=== PATIENT | male | born 1935 | race Caucasian/White ===

== ENCOUNTER 2018-02-27 09:18 | Day surgery (SDC) | payer MEDICARE, BC ==
[~2018-02-27 09:18] MED LIST: Lactated Ringers 1,000 ML IV SCH; Sodium Chloride 0.9% 10 ML Syringe FLUSH PRN
--- NOTE | 2018-02-27 11:20 | PREOP ---
ADMISSION DATE: 02/27/2018 CHIEF COMPLAINT: Epigastric pain. HISTORY OF PRESENT ILLNESS: This is an 82-year-old white male who has had some issues with gastroduodenitis. This was confirmed by biopsy. Recently, he has had a flare up of his epigastric discomfort and has not responded very well to the changes in medication. He presents now for an upper endoscopy. PAST MEDICAL HISTORY: Significant for hyperlipidemia, arthritis, gout, gastroduodenitis, gastroesophageal reflux disease, and renal calculi. PAST SURGICAL HISTORY: Significant for cataract surgery, knee surgery, left trapeziectomy, tonsils and adenoidectomy, bilateral knees, joint replacement in the thumbs, esophagogastroduodenoscopy, and skin biopsy. MEDICATIONS: Include: 1. Zantac 150 mg at bedtime. 2. Carafate 1 g four times a day before meals and at bedtime. 3. Aspirin 81 mg daily. 4. Protonix 40 mg daily. 5. Voltaren gel. 6. Zyloprim 100 mg daily. 7. Lipitor 80 mg daily. 8. Tylenol 1300 mg 2 times a day as needed for pain. ALLERGIES: Has no known drug allergies. SOCIAL HISTORY: The patient is . He is a former smoker and does not drink. REVIEW OF SYSTEMS: Essentially noncontributory except for the epigastric abdominal pain. He denies any breathing or cardiac issues. PHYSICAL EXAMINATION: GENERAL: This is a well-developed, well-nourished male, appearing in no acute distress. HEENT: Grossly within normal limits. LUNGS: Clear to auscultation. HEART: Had a regular rate and rhythm. ABDOMEN: Soft, nontender. ASSESSMENT: Persistent epigastric abdominal pain. PLAN: Esophagogastroduodenoscopy. Procedure and risks explained to the patient to include bleeding, infection, perforation. The patient expresses understanding and he asked us to proceed. /[id number] /MODL
[2018-02-27] MEDS ORDERED: Propofol 200 MG/20 ML SDV IV ONE (11:30)
[2018-02-27] MEDS ORDERED: Midazolam 1 MG/ML 2 ML SDV IV ONE (11:30)
--- NOTE | 2018-02-27 11:40 | PCM.OPNOTE ---
- General Post-Op/Procedure Note Date of Surgery/Procedure: 02/27/18 Operative Procedure(s): egd with bx Findings: gastritis Pre Op Diagnosis: hx of gerd gastroduodenitis Post-Op Diagnosis: gastritis Anesthesia Technique: MONIQUE Primary Surgeon: Sadi Barnard Anesthesia Provider: Luis Sherwood Pathology: stomach Complications: None Condition: Good Free Text/Narrative:: see dictation
--- NOTE | 2018-02-27 12:12 | OR ---
DATE OF OPERATION: 02/27/2018 SURGEON: Sadi Barnard MD PROCEDURES PERFORMED: EGD with cold forceps biopsy. PREOPERATIVE DIAGNOSES: Personal history of gastroduodenitis and persistent epigastric abdominal pain. POSTOPERATIVE DIAGNOSIS: Gastritis. INDICATIONS FOR PROCEDURE: This 82-year-old white male with epigastric abdominal pain, known history of gastroduodenitis proven on biopsy in the past. DESCRIPTION OF PROCEDURE: After an excellent IV sedation was administered, the bite block was inserted. The flexible endoscope was passed without difficulty down the patient's esophagus and into the stomach. The stomach was insufflated. Scope passed through the pylorus, to second portion of the duodenum, and slowly withdrawn. The following findings were noted. Duodenum was unremarkable. Stomach demonstrated some gastritis as well as some atrophy. Biopsies were taken. Esophagus was essentially unremarkable. Stomach was deflated as the scope was removed. The patient tolerated the procedure well and was taken to Recovery in a good condition. /[id number] CHERI/QUE
[2018-02-27 13:24] VITALS: BP 123/79
== END 2018-02-27 12:53 | disposition home or self-care (01) ==
LOC: FB.SDS 09:18
PROVIDERS: ATTEND Surgery
DX: K29.50 Unspecified chronic gastritis without bleeding (principal); E78.5 Hyperlipidemia, unspecified; M19.90 Unspecified osteoarthritis, unspecified site; M10.9 Gout, unspecified; K29.80 Duodenitis without bleeding; K21.9 Gastro-esophageal reflux disease without esophagitis; N20.0 Calculus of kidney; Z79.82 Long term (current) use of aspirin; Z79.899 Other long term (current) drug therapy; Z87.891 Personal history of nicotine dependence
CPT/HCPCS: 00731-QZ; 88305; 88342; J2250; J2704; J7120

== ENCOUNTER 2019-01-31 17:48 | Emergency (ER) | payer MEDICARE ==
[2019-01-31] MEDS ORDERED: Ketorolac 30 MG/ML SDV IVPUSH STA (18:29)
[2019-01-31] MEDS ORDERED: Tamsulosin 0.4 MG Cap.ER PO ONE (18:34)
--- NOTE | 2019-01-31 18:35 | EDM.PDOC ---
<Joon Faith - Last Filed: 01/31/19 19:53> ED HPI GENERAL MEDICAL PROBLEM - General Stated Complaint: PENIS PAIN, UNABLE TO URINATE Time Seen by Provider: 01/31/19 17:48 - Related Data Allergies Allergy/AdvReac Type Severity Reaction Status Date / Time No Known Allergies Allergy Verified 01/31/19 22:18 Home Meds: Home Meds Allopurinol 100 mg PO DAILY 01/04/16 [History] atorvaSTATin [Lipitor] 80 mg PO DAILY 01/04/16 [History] Acetaminophen [Tylenol Arthritis] 1,300 mg PO BID PRN 02/26/18 [History] Aspirin [Adult Low Dose Aspirin EC] 81 mg PO DAILY 02/26/18 [History] Diclofenac Sodium [Voltaren] 4 gm TP BID 02/26/18 [History] Multivitamin with Minerals [Multiple Vitamin] 1 tab PO DAILY 02/27/18 [History] Sucralfate [Carafate] 1 gm PO ACBREAKFASTANDBED #120 tablet 02/27/18 [Rx] Apixaban [Eliquis] 5 mg PO BID #60 tablet 11/02/18 [Rx] Diltiazem HCl [Diltiazem 24Hr Cd] 180 mg PO BID #60 cap.er.24h 11/02/18 [Rx] Furosemide [Lasix] 20 mg PO DAILY #60 tablet 11/02/18 [Rx] Potassium Chloride [Klor-Con 10] 10 meq PO DAILY #60 tablet.er 11/02/18 [Rx] Pantoprazole Sodium [Protonix] 40 mg PO DAILY 01/31/19 [History] Tamsulosin HCl 0.4 mg PO DAILY 01/31/19 [History] Course - Vital Signs Last Recorded V/S: Last Vital Signs Temp 36.6 C 01/31/19 19:00 Pulse 63 01/31/19 20:00 Resp 16 01/31/19 20:00 BP 112/63 01/31/19 20:00 Pulse Ox 95 01/31/19 20:00 - Orders/Labs/Meds Labs: Laboratory Tests 01/31/19 01/31/19 01/31/19 Range/Units 18:45 18:45 19:26 WBC 5.1 (4.5-12.0) X10-3/uL RBC 3.73 L (4.30-5.75) x10(6)uL Hgb 11.9 L (13.5-17.8) g/dL Hct 35.7 (30.0-51.3) % MCV 95.9 (80-96) fL MCH 32.0 (27.7-33.6) pg MCHC 33.4 (32.2-35.4) g/dL RDW 14.1 (11.5-15.5) % Plt Count 202 (125-369) X10(3)uL MPV 7.1 L (7.4-10.4) fL Neut % (Auto) 63.5 (46-82) % Lymph % (Auto) 19.7 (13-37) % Tift % (Auto) 10.4 (4-12) % Eos % (Auto) 6 H (1.0-5.0) % Baso % (Auto) 1 (0-2) % Neut # (Auto) 3.3 (1.6-8.3) # Lymph # (Auto) 1.0 (0.6-5.0) # Tift # (Auto) 0.5 (0.0-1.3) # Eos # (Auto) 0.3 (0.0-0.8) # Baso # (Auto) 0.0 (0.0-0.2) # Sodium 139 (135-145) mmol/L Potassium 3.9 (3.5-5.3) mmol/L Chloride 104 (100-110) mmol/L Carbon Dioxide 26 (21-32) mmol/L BUN 15 (7-18) mg/dL Creatinine 1.0 (0.70-1.30) mg/dL Est Cr Clr Drug Dosing TNP Estimated GFR (MDRD) > 60 (>60) BUN/Creatinine Ratio 15.0 (9-20) Glucose 105 (80-116) mg/dL Calcium 8.2 L (8.6-10.2) mg/dL Urine Color [place] (YELLOW) Urine Appearance Clear (CLEAR) Urine pH 5.0 (5.0-6.5) Ur Specific [place] 1.015 (1.010-1.025) Urine Protein 30 H (NEGATIVE) mg/dL Urine Glucose (UA) Normal (NORMAL) mg/dL Urine Ketones Negative (NEGATIVE) mg/dL Urine Occult Blood Moderate H (NEGATIVE) Urine Nitrite Positive H (NEGATIVE) Urine Bilirubin Small H (NEGATIVE) Urine Urobilinogen 4 H (NEGATIVE) mg/dL Ur Leukocyte Esterase Negative (NEGATIVE) Urine RBC 10-20 H (0-5) Urine WBC 0-5 (0-5) Ur Squamous Epith Cells Occasional (NS,R,O) Amorphous Sediment Few Urine Bacteria Rare H (NS) Meds: Medications Discontinued Medications Generic Name Dose Route Start Last Admin Trade Name Kristie PRN Reason Stop Dose Admin Ketorolac Tromethamine 15 mg 01/31/19 18:29 01/31/19 18:36 Toradol IVPUSH 01/31/19 18:30 15 mg ONETIME STA Administration Tamsulosin HCl 0.4 mg 01/31/19 18:34 01/31/19 18:39 Flomax PO 01/31/19 18:35 0.4 mg ONETIME ONE Administration Departure - Departure Disposition: Home, Self-Care 01 Clinical Impression: Prostate CA - Discharge Information Referrals: Nixon Putnam MD [Primary Care Provider] - Forms: ED Department Discharge Care Plan Goals: Continue what you were doing Follow up with urology as planned <Asad Ureña - Last Filed: 02/03/19 01:04> ED HPI GENERAL MEDICAL PROBLEM - General Source of Information: Reports: Patient, Family History Limitations: Reports: No Limitations - History of Present Illness INITIAL COMMENTS - FREE TEXT/NARRATIVE: 83 y.o.w.m with a H/O keystones and prostate CA, came to the ed due to bilateral flank pain and suprapubic distension, no able to void. No trauma, no urinary retention in the past, No N/V/D no dizziness. No C/P no SOB no other acute medical issues. BP 143/91 RR 20 Pulse ox 90% on RA Pulse 110 Temp 36.6 Onset Date: 01/31/19 Onset Time: 10:00 Duration: Hour(s):, Getting Worse Location: Reports: Abdomen, Pelvis Quality: Reports: Burning, Dull Severity: Moderate Improves with: Reports: Medication, Other (voiding) Context: Reports: Other (H/O Kidney stones) penis Pain Score (Numeric/FACES): 10 Past Medical History HEENT History: Reports: Cataract Cardiovascular History: Reports: None, High Cholesterol, Other (See Below) Other Cardiovascular History: TACHYCARDIA Respiratory History: Reports: None Gastrointestinal History: Reports: GERD Genitourinary History: Reports: BPH, Renal Calculus 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 Musculoskeletal History: Reports: Arthritis, Fracture, Gout Neurological History: Reports: None Psychiatric History: Reports: Anxiety Endocrine/Metabolic History: Reports: None Hematologic History: Reports: None Immunologic History: Reports: None Oncologic (Cancer) History: Reports: None Other Oncologic History: recent diagnsis- appt on Wednesday November 08, 2017 Dermatologic History: Reports: None - Past Surgical History Head Surgeries/Procedures: Reports: None HEENT Surgical History: Reports: Adenoidectomy, Cataract Surgery, Tonsillectomy , Other (See Below) Other HEENT Surgeries/Procedures: YAG CAPSULOTOMY-OD GI Surgical History: Reports: EGD Musculoskeletal Surgical History: Reports: Joint Replacement, Knee Replacement Dermatological Surgical History: Reports: Skin Biopsy Social & Family History - Family History Family Medical History: Noncontributory Cardiac: Reports: Arrhythmia, Bypass, CAD, Heart Failure, Heart Valve Replacement, High Cholesterol, Hypertension, [place], Stent - Caffeine Use Caffeine Use: Reports: Coffee ED ROS GENERAL - Review of Systems Review Of Systems: See Below Constitutional: Reports: No Symptoms HEENT: Reports: No Symptoms Respiratory: Reports: No Symptoms Cardiovascular: Reports: No Symptoms Endocrine: Reports: No Symptoms GI/Abdominal: Reports: Abdominal Pain : Reports: Flank Pain, Frequency, Hematuria, Urinary Retention Musculoskeletal: Reports: No Symptoms Skin: Reports: No Symptoms Neurological: Reports: No Symptoms Psychiatric: Reports: No Symptoms Hematologic/Lymphatic: Reports: No Symptoms Immunologic: Reports: No Symptoms ED EXAM, RENAL/ - Physical Exam Exam: See Below Exam Limited By: No Limitations General Appearance: Alert, WD/WN, Moderate Distress Eye Exam: Bilateral Eye: Normal Inspection Ears: Normal External Exam, Normal Canal Nose: Normal Inspection, Normal Mucosa Throat/Mouth: Normal Inspection, Normal Lips, Normal Voice, No Airway Compromise Head: Atraumatic, Normocephalic Neck: Normal Inspection, Supple, Non-Tender, Full Range of Motion Respiratory/Chest: No Respiratory Distress, Lungs Clear, Normal Breath Sounds, Chest Non-Tender Cardiovascular: Normal Peripheral Pulses, Regular Rate, Rhythm, No Edema, No Murmur, No Rub GI/Abdominal: Tender (distended, ) (Male) Exam: Suprapubic Fullness Rectal (Males) Exam: Deferred Back Exam: Normal Inspection Extremities: Normal Inspection, Normal Range of Motion, Non-Tender, No Pedal Edema, Normal Capillary Refill Neurological: Alert, Oriented, CN II-XII Intact, Normal Gait Psychiatric: Normal Affect, Normal Mood Skin Exam: Warm, Dry, Intact, Normal Color, No Rash Lymphatic: No Adenopathy Course - Vital Signs Text/Narrative:: 83 y.o.w.m with a H/O keystones and prostate CA, came to the ed due to bilateral flank pain and suprapubic distension, no able to void. No trauma, no urinary retention in the past, No N/V/D no dizziness. No C/P no SOB no other acute medical issues. BP 143/91 RR 20 Pulse ox 90% on RA Pulse 110 Temp 36.6 PE: WNWD W M with Abd pain unable to void Bladder scanner: > 370 cc Imaging: CT abd/pelvis: NAD Labs: Pending Impression: Flank pain, suprapubic distension Tx: Toradol, Flomax Sahu cath Signed out to Dr Soto at 7 am due to shift changes. Last Recorded V/S: Last Vital Signs Temp 36.6 C 01/31/19 19:00 Pulse 63 01/31/19 20:00 Resp 16 01/31/19 20:00 BP 112/63 01/31/19 20:00 Pulse Ox 95 01/31/19 20:00 - Orders/Labs/Meds Labs: Laboratory Tests 01/31/19 01/31/19 01/31/19 Range/Units 18:45 18:45 19:26 WBC 5.1 (4.5-12.0) X10-3/uL RBC 3.73 L (4.30-5.75) x10(6)uL Hgb 11.9 L (13.5-17.8) g/dL Hct 35.7 (30.0-51.3) % MCV 95.9 (80-96) fL MCH 32.0 (27.7-33.6) pg MCHC 33.4 (32.2-35.4) g/dL RDW 14.1 (11.5-15.5) % Plt Count 202 (125-369) X10(3)uL MPV 7.1 L (7.4-10.4) fL Neut % (Auto) 63.5 (46-82) % Lymph % (Auto) 19.7 (13-37) % Tift % (Auto) 10.4 (4-12) % Eos % (Auto) 6 H (1.0-5.0) % Baso % (Auto) 1 (0-2) % Neut # (Auto) 3.3 (1.6-8.3) # Lymph # (Auto) 1.0 (0.6-5.0) # Tift # (Auto) 0.5 (0.0-1.3) # Eos # (Auto) 0.3 (0.0-0.8) # Baso # (Auto) 0.0 (0.0-0.2) # Sodium 139 (135-145) mmol/L Potassium 3.9 (3.5-5.3) mmol/L Chloride 104 (100-110) mmol/L Carbon Dioxide 26 (21-32) mmol/L BUN 15 (7-18) mg/dL Creatinine 1.0 (0.70-1.30) mg/dL Est Cr Clr Drug Dosing TNP Estimated GFR (MDRD) > 60 (>60) BUN/Creatinine Ratio 15.0 (9-20) Glucose 105 (80-116) mg/dL Calcium 8.2 L (8.6-10.2) mg/dL Urine Color [place] (YELLOW) Urine Appearance Clear (CLEAR) Urine pH 5.0 (5.0-6.5) Ur Specific [place] 1.015 (1.010-1.025) Urine Protein 30 H (NEGATIVE) mg/dL Urine Glucose (UA) Normal (NORMAL) mg/dL Urine Ketones Negative (NEGATIVE) mg/dL Urine Occult Blood Moderate H (NEGATIVE) Urine Nitrite Positive H (NEGATIVE) Urine Bilirubin Small H (NEGATIVE) Urine Urobilinogen 4 H (NEGATIVE) mg/dL Ur Leukocyte Esterase Negative (NEGATIVE) Urine RBC 10-20 H (0-5) Urine WBC 0-5 (0-5) Ur Squamous Epith Cells Occasional (NS,R,O) Amorphous Sediment Few Urine Bacteria Rare H (NS) Meds: Medications Discontinued Medications Generic Name Dose Route Start Last Admin Trade Name Freq PRN Reason Stop Dose Admin Ketorolac Tromethamine 15 mg 01/31/19 18:29 01/31/19 18:36 Toradol IVPUSH 01/31/19 18:30 15 mg ONETIME STA Administration Tamsulosin HCl 0.4 mg 01/31/19 18:34 01/31/19 18:39 Flomax PO 01/31/19 18:35 0.4 mg ONETIME ONE Administration Departure - Departure Time of Disposition: 19:00 Condition: Fair
[2019-01-31 21:38] VITALS: BP 112/63
--- NOTE | 2019-02-03 10:40 | CT ---
INDICATION: Flank pain - penis pain. CT ABDOMEN AND PELVIS WITHOUT CONTRAST: Spiral 2.5 mm axial sections were obtained through the abdomen and pelvis without contrast, with sagittal and coronal reconstructions, 01/31/19, and compared with 11/28/18 [place] images. Total exam DLP = 888.67 mGy-cm. Minimal fibrotic appearing changes are noted at the lung bases bilaterally. The heart showed evidence of valvular disease and was slightly prominent in size. A somewhat lobulated low density mass is noted in the posteromedial right lobe of the liver, measuring approximately 26.8 mm, likely representing a benign structure. The gallbladder was contracted. The adrenal glands show evidence of a small probable benign adrenal lesion, low density on the left, likely an adenoma. As on the previous study, multiple calculi are noted in both kidneys, more numerous on the right than left. However, no obstructive uropathy was identified. No ureterectasis was seen. No definite renal mass is seen. Mild renal cortical scarring is suggested. No retroperitoneal mass was seen. Urinary bladder showed no evidence of calculi. The prostate did not appear to be enlarged. No urethral calculus was seen. Degenerative changes and disk disease are noted in the thoracolumbosacral spine. Calcifications are noted in the abdominal aorta, renal arteries, iliac and femoral arteries. A sigmoid scoliosis is noted with dextroconvex scoliosis at the thoracolumbar spine, dextroconcave scoliosis at the mid lumbar spine. The spleen appeared normal with a probable splenule inferiorly and anteriorly. The pancreas was felt to be normal. Sigmoid diverticulosis is noted without definite evidence of diverticulitis. No free air or bowel obstruction was suggested. No additional mass lesions, organomegaly, or free fluid collections were identified in the abdomen or pelvis. IMPRESSION: 1. 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 Urinary bladder may be slightly distended. 2. ASD. 3. Degenerative changes and disk disease thoracolumbosacral spine. 4. Probable benign cystic structure right lobe of the liver. 5. Probable valvular disease of the heart with mild pericardial thickening inferiorly of questionable significance. 6. Diverticulosis of the sigmoid colon without definite evidence of diverticulitis. Report was called to Dr. Ureña at approximately 1939 hours on 01/31/19. [facility]
== END 2019-01-31 20:07 | disposition home or self-care (01) ==
LOC: FB.ED 17:48
DX: C61 Malignant neoplasm of prostate (principal); Z79.899 Other long term (current) drug therapy; Z79.82 Long term (current) use of aspirin
CPT/HCPCS: 36415; 74176; 80048; 81001; 85025; 96374; 99284; A9270; J1885

== ENCOUNTER 2019-02-01 08:54 | Emergency (ER) | payer MEDICARE ==
--- NOTE | 2019-02-01 09:04 | EDM.PDOC ---
ED HPI GENERAL MEDICAL PROBLEM - General Stated Complaint: NEED CATHATER PLACED Time Seen by Provider: 02/01/19 08:54 Source of Information: Reports: Patient, Family History Limitations: Reports: No Limitations - History of Present Illness INITIAL COMMENTS - FREE TEXT/NARRATIVE: 83 y.o.w.m with a a H/O Prostate CA, came to the Ed today because he could not urinate. Pt was seen in this ed for same yesterday. Yesterday, the pt had urinary retention, he voided 400 CC through the Sahu cath, he felt fine, Sahu was removed, Pt was d/c'd to home. Now, the patient has again suprapubic fullness, he called his oncologist, who recommended a permanent Sahu catheter until her sees a urologist. No N/V/D no dizziness no CP or SOB. No other acute med issue. CT abd/pelvis was neg yesterday. BP 121/82 RR 18 Pulse ox 96% on RA pulse 61 Temp 36.6 Onset Date: 02/01/19 Onset Time: 03:00 Duration: Hour(s):, Getting Worse Location: Reports: Pelvis Quality: Reports: Dull Severity: Moderate Improves with: Reports: Rest Worsens with: Reports: Movement Context: Reports: Other (Prostate CA) Associated Symptoms: Reports: No Other Symptoms Treatments [employer]CH[employer]ICIAN: Reports: Aspirin, Other (see below) (on Coumadine ) Penis Pain Score (Numeric/FACES): 10 - Related Data Allergies Allergy/AdvReac Type Severity Reaction Status Date / Time No Known Allergies Allergy Verified 01/31/19 22:18 Home Meds: Home Meds Allopurinol 100 mg PO DAILY 01/04/16 [History] atorvaSTATin [Lipitor] 80 mg PO DAILY 01/04/16 [History] Acetaminophen [Tylenol Arthritis] 1,300 mg PO BID PRN 02/26/18 [History] Aspirin [Adult Low Dose Aspirin EC] 81 mg PO DAILY 02/26/18 [History] Diclofenac Sodium [Voltaren] 4 gm TP BID 02/26/18 [History] Multivitamin with Minerals [Multiple Vitamin] 1 tab PO DAILY 02/27/18 [History] Sucralfate [Carafate] 1 gm PO ACBREAKFASTANDBED #120 tablet 02/27/18 [Rx] Apixaban [Eliquis] 5 mg PO BID #60 tablet 11/02/18 [Rx] Diltiazem HCl [Diltiazem 24Hr Cd] 180 mg PO BID #60 cap.er.24h 11/02/18 [Rx] Furosemide [Lasix] 20 mg PO DAILY #60 tablet 11/02/18 [Rx] Potassium Chloride [Klor-Con 10] 10 meq PO DAILY #60 tablet.er 11/02/18 [Rx] Pantoprazole Sodium [Protonix] 40 mg PO DAILY 01/31/19 [History] Tamsulosin HCl 0.4 mg PO DAILY 01/31/19 [History] Past Medical History HEENT History: Reports: Cataract Cardiovascular History: Reports: None, High Cholesterol, Other (See Below) Other Cardiovascular History: TACHYCARDIA Respiratory History: Reports: None Gastrointestinal History: Reports: GERD Genitourinary History: Reports: BPH, Renal Calculus 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 Musculoskeletal History: Reports: Arthritis, Fracture, Gout Neurological History: Reports: None Psychiatric History: Reports: Anxiety Endocrine/Metabolic History: Reports: None Hematologic History: Reports: None Immunologic History: Reports: None Oncologic (Cancer) History: Reports: None, Prostate Other Oncologic History: prostate surgery 12/2018 Dermatologic History: Reports: None - Past Surgical History Head Surgeries/Procedures: Reports: None HEENT Surgical History: Reports: Adenoidectomy, Cataract Surgery, Tonsillectomy , Other (See Below) Other HEENT Surgeries/Procedures: YAG CAPSULOTOMY-OD GI Surgical History: Reports: EGD Male Surgical History: Reports: Prostate Biopsy Musculoskeletal Surgical History: Reports: Joint Replacement, Knee Replacement Dermatological Surgical History: Reports: Skin Biopsy Social & Family History - Family History Family Medical History: Noncontributory Cardiac: Reports: Arrhythmia, Bypass, CAD, Heart Failure, Heart Valve Replacement, High Cholesterol, Hypertension, [place], Stent - Caffeine Use Caffeine Use: Reports: Coffee ED ROS GENERAL - Review of Systems Review Of Systems: See Below Constitutional: Reports: No Symptoms HEENT: Reports: No Symptoms Respiratory: Reports: No Symptoms Cardiovascular: Reports: No Symptoms Endocrine: Reports: No Symptoms GI/Abdominal: Reports: No Symptoms : Reports: Dysuria, Flank Pain, Hematuria, Pain, Urinary Retention Musculoskeletal: Reports: No Symptoms Skin: Reports: No Symptoms Neurological: Reports: No Symptoms Psychiatric: Reports: No Symptoms Hematologic/Lymphatic: Reports: No Symptoms Immunologic: Reports: No Symptoms ED EXAM, RENAL/ - Physical Exam Exam: See Below Exam Limited By: No Limitations General Appearance: Alert, Moderate Distress Eye Exam: Bilateral Eye: Normal Inspection Ears: Normal External Exam Nose: Normal Inspection Throat/Mouth: Normal Inspection, Normal Lips, Normal Voice, No Airway Compromise Head: Atraumatic, Normocephalic Neck: Normal Inspection, Supple, Non-Tender, Full Range of Motion Respiratory/Chest: No Respiratory Distress, Lungs Clear, Normal Breath Sounds, Chest Non-Tender Cardiovascular: Normal Peripheral Pulses, Regular Rate, Rhythm, No Edema, No Gallop, No JVD, No Murmur GI/Abdominal: No Mass, Pelvis Stable, Distended, Tender (Male) Exam: Suprapubic Fullness Rectal (Males) Exam: Deferred Back Exam: Normal Inspection, Full Range of Motion Extremities: Normal Inspection, Normal Range of Motion, Non-Tender, No Pedal Edema, Normal Capillary Refill Neurological: Alert, Oriented, CN II-XII Intact, Normal Cognition, Normal Gait Psychiatric: Normal Affect, Normal Mood Skin Exam: Warm, Dry, Intact, Normal Color, No Rash Lymphatic: No Adenopathy Course - Vital Signs Text/Narrative:: 83 y.o.w.m with a a H/O Prostate CA, came to the Ed today because he could not urinate. Pt was seen in this ed for same yesterday. Yesterday, the pt had urinary retention, he voided 400 CC through the Sahu cath, he felt fine, Sahu was removed, Pt was d/c'd to home. Now, the patient has again suprapubic fullness, he called his oncologist, who recommended a permanent Sahu catheter until her sees a urologist. No N/V/D no dizziness no CP or SOB. No other acute med issue. CT abd/pelvis was neg yesterday. BP 121/82 RR 18 Pulse ox 96% on RA pulse 61 Temp 36.6 PE: WNWD W M with urinary retention, H/P Prostate CA Labs: UA: Traumatic hematuria Impression: Urinary Retention, H/O Prostate CA Tx: Sahu Cath placement Reexam: Improved, passed > 400 CC urine through Sahu Plan: D/C with instructions Last Recorded V/S: Last Vital Signs Temp 36.7 C 02/01/19 09:01 Pulse 69 02/01/19 09:01 Resp 18 02/01/19 09:01 BP 121/82 02/01/19 09:01 Pulse Ox 96 02/01/19 09:01 - Orders/Labs/Meds Orders: Active Orders 24 hr Category Date Time Status Insert Sahu Catheter [Insert Urinary Catheter] [OM.PC] Care 02/01/19 09:15 Ordered Q24H Urinary Catheter Assessment [RC] [facility] Care 02/01/19 09:01 Active Labs: Laboratory Tests 02/01/19 Range/Units 10:10 Urine Color [place] (YELLOW) Urine Appearance Slightly cloudy (CLEAR) Urine pH 5.0 (5.0-6.5) Ur Specific [place] 1.015 (1.010-1.025) Urine Protein Trace (NEGATIVE) mg/dL Urine Glucose (UA) Normal (NORMAL) mg/dL Urine Ketones Negative (NEGATIVE) mg/dL Urine Occult Blood Large H (NEGATIVE) Urine Nitrite Positive H (NEGATIVE) Urine Bilirubin Small H (NEGATIVE) Urine Urobilinogen 1 H (NEGATIVE) mg/dL Ur Leukocyte Esterase Negative (NEGATIVE) Urine RBC 50-75 H (0-5) Urine WBC 0-5 (0-5) Ur Squamous Epith Cells Occasional (NS,R,O) Urine Bacteria Many H (NS) Departure - Departure Time of Disposition: 09:47 Disposition: Home, Self-Care 01 Condition: Good Clinical Impression: Acute urinary retention, Prostate CA - Discharge Information Instructions: Indwelling Urinary Catheter Care, Adult, Acute Urinary Retention , Male, [id number] Referrals: Nixon Putnam MD [Primary Care Provider] - Forms: ED Department Discharge Additional Instructions: Please continue your current meds, please F/U with your urologist in next 3 days in order to remove the Sahu catheter, please come back if your symptoms get worse acutely - My Orders Last 24 Hours: My Active Orders 02/01/19 09:01 Urinary Catheter Assessment [RC] [facility] 02/01/19 09:15 Insert Sahu Catheter [Insert Urinary Catheter] [OM.PC] Q24H - Assessment/Plan Last 24 Hours: My Active Orders 02/01/19 09:01 [facility]ter [facility]RC] [facility]/01/19 09:15 Insert Sahu Catheter [Insert Urinary Catheter] [OM.PC] Q24H
[2019-02-01 11:13] VITALS: BP 121/82
== END 2019-02-01 10:10 | disposition home or self-care (01) ==
LOC: FB.ED 08:54
DX: R33.8 Other retention of urine (principal); C61 Malignant neoplasm of prostate; F41.9 Anxiety disorder, unspecified; Z79.899 Other long term (current) drug therapy; Z79.82 Long term (current) use of aspirin
CPT/HCPCS: 51702; 81001; 99283

== ENCOUNTER 2020-02-28 14:26 | Emergency (ER) | payer MEDICARE ==
--- NOTE | 2020-02-28 14:49 | EDM.PDOC ---
ED HPI GENERAL MEDICAL PROBLEM - General Chief Complaint: ENT Problem Stated Complaint: SORE THROAT Time Seen by Provider: 02/28/20 14:45 Source of Information: Reports: Patient History Limitations: Reports: No Limitations - History of Present Illness INITIAL COMMENTS - FREE TEXT/NARRATIVE: 84-year-old male who reports that about the middle of last week she had burning in his throat and some increased post nasal drainage and the burning seemed to go away after about a day and he was fine until he awoke this morning and he noted more burning in his throat and continuing post nasal drainage. The pain is a burning pain. It is rated by him as a 4/10. He has had no nausea or vomiting. There has been no chest pain, arm pain or back pain. He reports that there are no exacerbating or alleviating factors. He is able to swallow without any problems. No shortness of breath. No fevers or chills. There are no other associated signs or symptoms. There are no other modifying factors. Onset: Other (As above but seemed to come back and be worse today) Duration: Other (As above) Location: Reports: Other (Throat) Quality: Reports: Burning Severity: Moderate Improves with: Reports: None Worsens with: Reports: None Context: Reports: Other (As above) Associated Symptoms: Reports: No Other Symptoms Treatments WOMEN NURSE: Reports: Other (see below) (Throat lozenges) throat Pain Score (Numeric/FACES): 4 - Related Data Allergies Allergy/AdvReac Type Severity Reaction Status Date / Time No Known Allergies Allergy Verified 02/28/20 14:39 Home Meds: Home Meds allopurinoL [Allopurinol] 100 mg PO DAILY 01/04/16 [History] atorvaSTATin [Lipitor] 80 mg PO DAILY 01/04/16 [History] Acetaminophen [Tylenol Arthritis] 1,300 mg PO BID PRN 02/26/18 [History] Aspirin [Adult Low Dose Aspirin EC] 81 mg PO DAILY 02/26/18 [History] Diclofenac Sodium [Voltaren] 4 gm TP BID 02/26/18 [History] Multivitamin with Minerals [Multiple Vitamin] 1 tab PO DAILY 02/27/18 [History] Sucralfate [Carafate] 1 gm PO ACBREAKFASTANDBED #120 tablet 02/27/18 [Rx] Apixaban [Eliquis] 5 mg PO BID #60 tablet 11/02/18 [Rx] Diltiazem HCl [Diltiazem 24Hr Cd] 180 mg PO BID #60 cap.er.24h 11/02/18 [Rx] Furosemide [Lasix] 20 mg PO DAILY #60 tablet 11/02/18 [Rx] Potassium Chloride [Klor-Con 10] 10 meq PO DAILY #60 tablet.er 11/02/18 [Rx] Pantoprazole Sodium [Protonix] 40 mg PO DAILY 01/31/19 [History] Tamsulosin HCl 0.4 mg PO DAILY 01/31/19 [History] Past Medical History HEENT History: Reports: Cataract Cardiovascular History: Reports: Afib, High Cholesterol Gastrointestinal History: Reports: GERD Genitourinary History: Reports: BPH, Renal Calculus Musculoskeletal History: Reports: Arthritis, Fracture, Gout Psychiatric History: Reports: Anxiety Hematologic History: Reports: Anticoagulation Therapy (On Eliquis) Oncologic (Cancer) History: Reports: Prostate Other Oncologic History: prostate surgery 12/2018 - Past Surgical History HEENT Surgical History: Reports: Adenoidectomy, Cataract Surgery, Tonsillectomy , Other (See Below) Other HEENT Surgeries/Procedures: YAG CAPSULOTOMY-OD GI Surgical History: Reports: EGD Male Surgical History: Reports: Prostatectomy Musculoskeletal Surgical History: Reports: Joint Replacement, Knee Replacement Dermatological Surgical History: Reports: Skin Biopsy Social & Family History - Family History Cardiac: Reports: Arrhythmia, Bypass, CAD, Heart Failure, Heart Valve Replacement, High Cholesterol, Hypertension, [place], Stent - Tobacco Use Smoking Status *Q: Former Smoker Used Tobacco, but Quit: Yes Month/Year Tobacco Last Used: 10/1979 - Caffeine Use Caffeine Use: Reports: None - Alcohol Use Alcohol Use History: No - Living Situation & Occupation Living situation: Reports: Occupation: Retired ED ROS ENT - Review of Systems Review Of Systems: See Below Constitutional: Reports: No Symptoms HEENT: Reports: Throat Pain, Other (Nasal drainage) Respiratory: Reports: No Symptoms Cardiovascular: Reports: No Symptoms Endocrine: Reports: No Symptoms GI/Abdominal: Reports: No Symptoms : Reports: No Symptoms Musculoskeletal: Reports: No Symptoms Skin: Reports: No Symptoms Neurological: Reports: No Symptoms Hematologic/Lymphatic: Reports: No Symptoms Immunologic: Reports: No Symptoms ED EXAM, ENT - Physical Exam Exam: See Below Exam Limited By: No Limitations General Appearance: Alert, WD/WN, No Apparent Distress Eye Exam: Bilateral Eye: EOMI, Normal Inspection Ears: Normal External Exam, Hearing Grossly Normal Nose: No Blood, Nasal Discharge Mouth/Throat: Pharyngeal Erythema. No: Peritonsillar Mass, Tongue Swelling Head: Atraumatic, Normocephalic Neck: Normal Inspection, Supple, Non-Tender, Full Range of Motion Respiratory/Chest: No Respiratory Distress, Lungs Clear, Normal Breath Sounds, No Accessory Muscle Use, Chest Non-Tender Cardiovascular: Normal Peripheral Pulses, Regular Rate, Rhythm, No Murmur GI/Abdominal: Normal Bowel Sounds, Soft, Non-Tender Back: Normal Inspection Extremities: Normal Inspection, Normal Range of Motion, Non-Tender, No Pedal Edema, Normal Capillary Refill Neurological: Alert, Oriented, CN II-XII Intact, Normal Cognition, No Motor/ Sensory Deficits Psychiatric: Normal Affect Skin: Warm, Dry, Intact, Normal Color, No Rash Course - Vital Signs Last Recorded V/S: Last Vital Signs Temp 36.6 C 02/28/20 14:27 Pulse 58 L 02/28/20 14:27 Resp 14 02/28/20 14:27 BP 151/94 H 02/28/20 14:27 Pulse Ox 98 02/28/20 14:27 - Orders/Labs/Meds Orders: Active Orders 24 hr Category Date Time Status CULTURE STREP A CONFIRMATION [] Stat Lab 02/28/20 14:49 Results STREP SCRN A RAPID W CULT CONF [] Stat Lab 02/28/20 14:49 Results Labs: Rapid strep was negative. A swab for confirmatory culture was sent. - Re-Assessments/Exams Free Text/Narrative Re-Assessment/Exam: 02/28/20 15:05: The patient's rapid strep was negative. His exam is reassuring. He appears to have an upper respiratory infection. Treatment should be supportive with throat lozenges and Tylenol. Precautions and reasons for return to the emergency department were discussed with the patient while in the emergency department and were detailed in his discharge instructions. Departure - Departure Time of Disposition: 15:10 Disposition: Home, Self-Care 01 Condition: Good Clinical Impression: Pharyngitis Qualifiers: Pharyngitis/tonsillitis etiology: unspecified etiology Qualified Code(s): J02.9 - Acute pharyngitis, unspecified - Discharge Information Instructions: Pharyngitis, [id number] Referrals: Nixon Putnam MD [Primary Care Provider] - Forms: ED Department Discharge Additional Instructions: Your strep screen was negative. You appear to have a viral infection. You should rest. You should drink plenty of fluids. Use throat lozenges for symptom relief and you may also take Tylenol 1000 mg by mouth every 6 hours as needed for pain. Back to the emergency department for trouble breathing, chest pain, inability to swallow any other concerning sign or symptom. Sepsis Event Note - Evaluation Sepsis Screening Result: No Definite Risk - Focused Exam Vital Signs: Vital Signs Temp Pulse Resp BP Pulse Ox 02/28/20 14:27 36.6 C 58 L 14 151/94 H 98 Date Exam was Performed: 02/28/20 Time Exam was Performed: 15:12 - My Orders Last 24 Hours: My Active Orders 02/28/20 14:49 CULTURE STREP A CONFIRMATION [RM] Stat STREP SCRN A RAPID W CULT CONF [RM] Stat - Assessment/Plan Last 24 Hours: My Active Orders 02/28/20 14:49 CULTURE STREP A CONFIRMATION [RM] Stat STREP SCRN A RAPID W CULT CONF [RM] Stat
[2020-02-28 15:29] VITALS: BP 126/88; PULSE 51
== END 2020-02-28 15:20 | disposition home or self-care (01) ==
LOC: FB.ED 14:26
DX: J02.9 Acute pharyngitis, unspecified (principal); I48.91 Unspecified atrial fibrillation; E78.00 Pure hypercholesterolemia, unspecified; K21.9 Gastro-esophageal reflux disease without esophagitis; M19.90 Unspecified osteoarthritis, unspecified site; F41.9 Anxiety disorder, unspecified; Z87.891 Personal history of nicotine dependence; Z79.899 Other long term (current) drug therapy; Z79.82 Long term (current) use of aspirin; Z79.01 Long term (current) use of anticoagulants
CPT/HCPCS: 87081; 87880-QW; 99283

== ENCOUNTER 2020-09-29 08:03 | Emergency (ER) | payer MEDICARE ==
[2020-09-29] MEDS ORDERED: Ondansetron 4 MG/2 ML SDV IVPUSH ONE (08:37)
[2020-09-29] MEDS ORDERED: Sodium Chloride 0.9% 1,000 ML IV ONE (08:37)
[2020-09-29] MEDS ORDERED: Sodium Chloride 0.9% 10 ML Syringe FLUSH PRN (09:31)
--- NOTE | 2020-09-29 09:59 | EDM.PDOC ---
ED HPI GENERAL MEDICAL PROBLEM - General Chief Complaint: Gastrointestinal Problem Stated Complaint: DEHYDRATION Time Seen by Provider: 09/29/20 08:15 Source of Information: Reports: Patient, Family History Limitations: Reports: No Limitations - History of Present Illness INITIAL COMMENTS - FREE TEXT/NARRATIVE: Patient presented to the ED because of N/V/D for 4 days. He was diagnosed with influenza last Sunday. There is no fever/chills/ but c/o body malaise and weakness. Epigastric pain Pain Score (Numeric/FACES): 4 - Related Data Allergies Allergy/AdvReac Type Severity Reaction Status Date / Time No Known Allergies Allergy Verified 09/29/20 08:08 Home Meds: Home Meds allopurinoL [Allopurinol] 100 mg PO DAILY 01/04/16 [History] atorvaSTATin [Lipitor] 80 mg PO DAILY 01/04/16 [History] Acetaminophen [Tylenol Arthritis] 1,300 mg PO BID PRN 02/26/18 [History] Diclofenac Sodium [Voltaren] 4 gm TP DAILY PRN 02/26/18 [History] Multivitamin with Minerals [Multiple Vitamin] 1 tab PO DAILY 02/27/18 [History] Apixaban [Eliquis] 5 mg PO BID #60 tablet 11/02/18 [Rx] Pantoprazole Sodium [Protonix] 40 mg PO DAILY 01/31/19 [History] Dicyclomine [Bentyl] 20 mg PO DAILY 09/29/20 [History] Diltiazem HCl [Diltiazem 24Hr Cd] 180 mg PO DAILY 09/29/20 [History] Donepezil HCl [Aricept] 10 mg BEDTIME 09/29/20 [History] Furosemide [Lasix] 40 mg PO DAILY 09/29/20 [History] Ondansetron [Zofran ODT] 4 mg PO Q4H PRN #5 tab.dis 09/29/20 [Rx] Potassium Chloride [Klor-Con 10] 20 meq PO DAILY 09/29/20 [History] Past Medical History HEENT History: Reports: Cataract Cardiovascular History: Reports: Afib, High Cholesterol Other Cardiovascular History: TACHYCARDIA Respiratory History: Reports: None Gastrointestinal History: Reports: GERD Genitourinary History: Reports: BPH, Renal Calculus [employer] History: Reports: None Musculoskeletal History: Reports: Arthritis, Fracture, Gout Neurological History: Reports: None Psychiatric History: Reports: Anxiety Endocrine/Metabolic History: Reports: None Hematologic History: Reports: Anticoagulation Therapy (On Eliquis) Immunologic History: Reports: None Oncologic (Cancer) History: Reports: Prostate Other Oncologic History: prostate surgery 12/2018 Dermatologic History: Reports: None - Past Surgical History HEENT Surgical History: Reports: Adenoidectomy, Cataract Surgery, Tonsillectomy, Other (See Below) Other HEENT Surgeries/Procedures: YAG CAPSULOTOMY-OD GI Surgical History: Reports: EGD Male Surgical History: Reports: Prostatectomy Musculoskeletal Surgical History: Reports: Joint Replacement, Knee Replacement Dermatological Surgical History: Reports: Skin Biopsy Social & Family History - Family History Family Medical History: No Pertinent Family History Cardiac: Reports: Arrhythmia, Bypass, CAD, Heart Failure, Heart Valve Replacement, High Cholesterol, Hypertension, [place], Stent - Caffeine Use Caffeine Use: Reports: None - Living Situation & Occupation Living situation: Reports: Occupation: Retired ED ROS GENERAL - Review of Systems Review Of Systems: See Below Constitutional: Reports: Malaise, Weakness HEENT: Reports: No Symptoms Respiratory: Reports: No Symptoms Cardiovascular: Reports: No Symptoms Endocrine: Reports: No Symptoms GI/Abdominal: Reports: No Symptoms : Reports: No Symptoms Musculoskeletal: Reports: No Symptoms Skin: Reports: No Symptoms Neurological: Reports: No Symptoms ED EXAM, GENERAL - Physical Exam Exam: See Below Exam Limited By: No Limitations General Appearance: Alert, No Apparent Distress Ears: Normal External Exam, Normal Canal Nose: Normal Inspection, Normal Mucosa, No Blood Throat/Mouth: Normal Inspection, Normal Lips Head: Atraumatic, Normocephalic Neck: Normal Inspection, Supple, Non-Tender, Lymphadenopathy (R) Respiratory/Chest: No Respiratory Distress, Lungs Clear, Normal Breath Sounds Cardiovascular: Normal Peripheral Pulses, Regular Rate, Rhythm, No Edema, No Gallop GI/Abdominal: Normal Bowel Sounds, Soft, Non-Tender, No Organomegaly Back Exam: Normal Inspection, Full Range of Motion Course - Vital Signs Text/Narrative:: Labs and EKG was reviewed with the patient and his NS 1 L in 2 hours Last Recorded V/S: Last Vital Signs Temp 36.5 C 09/29/20 11:23 Pulse 106 H 09/29/20 11:23 Resp 18 09/29/20 11:23 BP 150/82 H 09/29/20 11:23 Pulse Ox 96 12/02/20 11:23 - Orders/Labs/Meds Orders: Active Orders 24 hr Category Date Time Status Isolation [COMM] Routine Oth 09/29/20 09:32 Ordered Saline Lock Insert [OM.PC] Routine Oth 09/29/20 09:31 Ordered EKG 12 Lead [EK] Routine Ther 09/29/20 08:37 Ordered EKG 12 Lead [EK] Routine Ther 09/29/20 09:31 Stop Req Labs: Laboratory Tests 09/29/20 09/29/20 09/29/20 Range/Units 08:05 08:05 08:05 WBC 6.6 (3.2-10.1) x10-3/uL RBC 4.67 (3.90-5.90) x10(6)uL Hgb 15.1 (12.9-17.7) g/dL Hct 45.9 (38.3-50.1) % MCV 98.4 (80.8-98.7) fL MCH 32.4 (27.0-33.3) pg MCHC 32.9 (28.7-35.3) g/dL RDW 12.9 (12.4-15.0) % Plt Count 258 (117-477) x10(3)uL MPV 7.6 (6.7-11.0) fL Neut % (Auto) 67.1 (40.3-71.8) % Lymph % (Auto) 22.4 (15.8-45.3) % [place] % (Auto) 9.3 (5.5-15.2) % Eos % (Auto) 1.0 (0.1-6.8) % Baso % (Auto) 0.2 L (0.3-3.8) % Neut # (Auto) 4.4 (1.7-6.9) x10-3/uL Lymph # (Auto) 1.5 (0.5-4.5) x10-3/uL [place] # (Auto) 0.6 (0.0-1.2) x10-3/uL Eos # (Auto) 0.1 (0.0-0.6) x10-3/uL Baso # (Auto) 0.0 (0.0-0.3) x10-3/uL Sodium 138 (135-145) mmol/L Potassium 4.0 (3.5-5.3) mmol/L Chloride 101 (100-110) mmol/L Carbon Dioxide 31 (21-32) mmol/L BUN 8 (7-18) mg/dL Creatinine 1.0 (0.70-1.30) mg/dL Est Cr Clr Drug Dosing 48.74 mL/min Estimated GFR (MDRD) > 60 (>60) BUN/Creatinine Ratio 8.0 L (9-20) Glucose 119 H (80-116) mg/dL Calcium 9.2 (8.6-10.2) mg/dL Total Bilirubin 0.5 (0.1-1.3) mg/dL AST 27 H (5-25) IU/L ALT 28 (12-36) U/L Alkaline Phosphatase 94 (56-112) IU/L Troponin I 7.3 (4.0-60.3) pg/mL Total Protein 7.4 (6.0-8.0) g/dL Albumin 3.5 (3.2-4.6) g/dL Globulin 3.9 g/dL Albumin/Globulin Ratio 0.9 Urine Color (YELLOW) Urine Appearance (CLEAR) Urine pH (5.0-6.5) Ur Specific [place] (1.010-1.025) Urine Protein (NEGATIVE) mg/dL Urine Glucose (UA) (NORMAL) mg/dL Urine Ketones (NEGATIVE) mg/dL Urine Occult Blood (NEGATIVE) Urine Nitrite (NEGATIVE) Urine Bilirubin (NEGATIVE) Urine Urobilinogen (NEGATIVE) mg/dL Ur Leukocyte Esterase (NEGATIVE) Urine WBC (0-5) Ur Squamous Epith Cells (NS,R,O) Urine Bacteria (NS) 09/29/20 Range/Units 10:07 WBC (3.2-10.1) x10-3/uL RBC (3.90-5.90) x10(6)uL Hgb (12.9-17.7) g/dL Hct (38.3-50.1) % MCV (80.8-98.7) fL MCH (27.0-33.3) pg MCHC (28.7-35.3) g/dL RDW (12.4-15.0) % Plt Count (117-477) x10(3)uL MPV (6.7-11.0) fL Neut % (Auto) (40.3-71.8) % Lymph % (Auto) (15.8-45.3) % [place] % (Auto) (5.5-15.2) % Eos % (Auto) (0.1-6.8) % Baso % (Auto) (0.3-3.8) % Neut # (Auto) (1.7-6.9) x10-3/uL Lymph # (Auto) (0.5-4.5) x10-3/uL [place] # (Auto) (0.0-1.2) x10-3/uL Eos # (Auto) (0.0-0.6) x10-3/uL Baso # (Auto) (0.0-0.3) x10-3/uL Sodium (135-145) mmol/L Potassium (3.5-5.3) mmol/L Chloride (100-110) mmol/L Carbon Dioxide (21-32) mmol/L BUN (7-18) mg/dL Creatinine (0.70-1.30) mg/dL Est Cr Clr Drug Dosing mL/min Estimated GFR (MDRD) (>60) BUN/Creatinine Ratio (9-20) Glucose (80-116) mg/dL Calcium (8.6-10.2) mg/dL Total Bilirubin (0.1-1.3) mg/dL AST (5-25) IU/L ALT (12-36) U/L Alkaline Phosphatase (56-112) IU/L Troponin I (4.0-60.3) pg/mL Total Protein (6.0-8.0) g/dL Albumin (3.2-4.6) g/dL Globulin g/dL Albumin/Globulin Ratio Urine Color Yellow (YELLOW) Urine Appearance Clear (CLEAR) Urine pH 6.0 (5.0-6.5) Ur Specific [place] 1.015 (1.010-1.025) Urine Protein Negative (NEGATIVE) mg/dL Urine Glucose (UA) Normal (NORMAL) mg/dL Urine Ketones Negative (NEGATIVE) mg/dL Urine Occult Blood Negative (NEGATIVE) Urine Nitrite Negative (NEGATIVE) Urine Bilirubin Negative (NEGATIVE) Urine Urobilinogen Normal (NEGATIVE) mg/dL Ur Leukocyte Esterase Negative (NEGATIVE) Urine WBC 0-5 (0-5) Ur Squamous Epith Cells Occasional (NS,R,O) Urine Bacteria Few H (NS) Meds: Medications Discontinued Medications Generic Name Dose Route Start Last Admin Trade Name Kristie PRN Reason Stop Dose Admin Sodium Chloride 1,000 mls @ 500 mls/hr 09/29/20 08:37 09/29/20 09:20 Normal Saline IV 09/29/20 10:36 500 mls/hr .BOLUS ONE Administration Ondansetron HCl 4 mg 09/29/20 08:37 09/29/20 09:20 Zofran IVPUSH 09/29/20 08:38 4 mg ONETIME ONE Administration Sodium Chloride 10 ml 09/29/20 09:31 Saline Flush FLUSH ASDIRECTED PRN Keep Vein Open Departure - Departure Time of Disposition: 10:30 Disposition: Home, Self-Care 01 Condition: Good Clinical Impression: Influenza, Viral gastroenteritis, Dehydration - Discharge Information Prescriptions: Ondansetron [Zofran ODT] 4 mg PO Q4H PRN #5 tab.dis PRN Reason: Nausea Instructions: Influenza, Adult, [id number], Viral Gastroenteritis, Adult, [id number] Referrals: Nixon Putnam MD [Primary Care Provider] - Forms: ED Department Discharge Additional Instructions: please read discharge instructions on influenza and stomach flu increase oral fluids imodium(over the counter) take 1-2 tablets every 6 hours as needed for diarrhea zofran odt 4 mg every 4 hours as needed for nausea do no take your lasix/furosemide for 2 days follow up as needed Sepsis Event Note (ED) - Evaluation Sepsis Screening Result: No Definite Risk - My Orders Last 24 Hours: My Active Orders 09/29/20 08:37 EKG 12 Lead [EK] Routine 09/29/20 09:31 Saline Lock Insert [OM.PC] Routine EKG 12 Lead [EK] Routine 09/29/20 09:32 Isolation [COMM] Routine - Assessment/Plan Last 24 Hours: My Active Orders 09/29/20 08:37 EKG 12 Lead [EK] Routine 09/29/20 09:31 Saline Lock Insert [OM.PC] Routine EKG 12 Lead [EK] Routine 09/29/20 09:32 Isolation [COMM] Routine
[2020-09-29 14:20] VITALS: BP 150/82; PULSE 106
== END 2020-09-29 11:30 | disposition home or self-care (01) ==
LOC: FB.ED 08:03
DX: J11.2 Influenza due to unidentified influenza virus with gastrointestinal manifestations (principal); E86.0 Dehydration; I48.91 Unspecified atrial fibrillation; E78.00 Pure hypercholesterolemia, unspecified; K21.9 Gastro-esophageal reflux disease without esophagitis; Z79.01 Long term (current) use of anticoagulants; Z79.899 Other long term (current) drug therapy
CPT/HCPCS: 36415; 80053; 81001; 84484; 85025; 93005; 96374; 99284-25; J2405; J7030

== ENCOUNTER 2021-06-11 16:35 | Emergency (ER) | payer MEDICARE ==
[2021-06-11 17:04] VITALS: BP 132/75; PULSE 52
--- NOTE | 2021-06-11 17:46 | EDM.PDOC ---
ED HPI GENERAL MEDICAL PROBLEM - General Chief Complaint: General Stated Complaint: SWOLLEN R LOWER LEG Time Seen by Provider: 06/11/21 16:45 Source of Information: Reports: Patient ([id number]) History Limitations: Reports: No Limitations - History of Present Illness INITIAL COMMENTS - FREE TEXT/NARRATIVE: 86-year-old gentleman came to the emergency department for evaluation of a red, swollen, painful right lower leg. He has a history of atrial fibrillation and is treated with Eliquis. However, he was instructed to stop taking Eliquis prior to having bunion surgery later this week. He was mowing his yard this morning when he noticed some pain in his right lower leg. He looked down and noticed that his leg was red and swollen. He came in and lay down and elevate his feet. He continued to have some pain and swelling so he came to the emergency department. He did not have chest pain, shortness of breath, palpitations, fever. He denies viral type symptoms and has had no change in bowel or bladder habits leading up to today. - Related Data Allergies Allergy/AdvReac Type Severity Reaction Status Date / Time No Known Allergies Allergy Verified 11/04/20 09:28 Home Meds: Home Meds allopurinoL [Allopurinol] 100 mg PO DAILY 01/04/16 [History] atorvaSTATin [Lipitor] 80 mg PO DAILY 01/04/16 [History] Acetaminophen [Tylenol Arthritis] 1,300 mg PO BID PRN 02/26/18 [History] Diclofenac Sodium [Voltaren] 4 gm TP DAILY PRN 02/26/18 [History] Multivitamin with Minerals [Multiple Vitamin] 1 tab PO DAILY 02/27/18 [History] Apixaban [Eliquis] 5 mg PO BID #60 tablet 11/02/18 [Rx] Pantoprazole Sodium [Protonix] 40 mg PO DAILY 01/31/19 [History] Dicyclomine [Bentyl] 20 mg PO DAILY 09/29/20 [History] Diltiazem HCl [Diltiazem 24Hr Cd] 180 mg PO DAILY 09/29/20 [History] Donepezil HCl [Aricept] 10 mg BEDTIME 09/29/20 [History] Furosemide [Lasix] 40 mg PO DAILY 09/29/20 [History] Ondansetron [Zofran ODT] 4 mg PO Q4H PRN #5 tab.dis 12/02/20 [Rx] Potassium Chloride [Klor-Con 10] 20 meq PO DAILY 09/29/20 [History] Past Medical History HEENT History: Reports: Cataract Cardiovascular History: Reports: Afib, High Cholesterol Other Cardiovascular History: TACHYCARDIA Respiratory History: Reports: None Gastrointestinal History: Reports: GERD, Hiatal Hernia Genitourinary History: Reports: BPH, Renal Calculus, Other (See Below) Other Genitourinary History: hx prostate [place] [employer] History: Reports: None Musculoskeletal History: Reports: Arthritis, Fracture, Gout Other Musculoskeletal History: hx fx R arm, L 5th digit Neurological History: Reports: None Psychiatric History: Reports: Anxiety, Dementia Endocrine/Metabolic History: Reports: None Hematologic History: Reports: Anticoagulation Therapy Immunologic History: Reports: None Oncologic (Cancer) History: Reports: Prostate Other Oncologic History: prostate surgery 12/2018 Dermatologic History: Reports: None - Infectious Disease History Infectious Disease History: Reports: Chicken Pox, Mumps - Past Surgical History Head Surgeries/Procedures: Reports: None HEENT Surgical History: Reports: Adenoidectomy, Cataract Surgery, Tonsillectomy, Other (See Below) Other HEENT Surgeries/Procedures: YAG CAPSULOTOMY-OD GI Surgical History: Reports: EGD Male Surgical History: Reports: Prostatectomy Musculoskeletal Surgical History: Reports: Joint Replacement, Knee Replacement Other Musculoskeletal Surgeries/Procedures:: bilat knee replacement Dermatological Surgical History: Reports: Skin Biopsy Social & Family History - Family History Family Medical History: No Pertinent Family History Cardiac: Reports: Arrhythmia, Bypass, CAD, Heart Failure, Heart Valve Replacement, High Cholesterol, Hypertension, [place], Stent - Tobacco Use Tobacco Use Status *Q: Unknown Ever Used Tobacco - Caffeine Use Caffeine Use: Reports: Coffee - Living Situation & Occupation Living situation: Reports: Occupation: Retired ED ROS GENERAL - Review of Systems Review Of Systems: See Below Constitutional: Reports: No Symptoms HEENT: Reports: No Symptoms Respiratory: Reports: No Symptoms Cardiovascular: Reports: No Symptoms Endocrine: Reports: No Symptoms GI/Abdominal: Reports: No Symptoms : Reports: No Symptoms Musculoskeletal: Reports: Leg Pain Skin: Reports: No Symptoms Neurological: Reports: No Symptoms Psychiatric: Reports: No Symptoms Hematologic/Lymphatic: Reports: No Symptoms Immunologic: Reports: No Symptoms ED EXAM, GENERAL - Physical Exam Exam: See Below Exam Limited By: No Limitations General Appearance: Alert, WD/WN, No Apparent Distress Eye Exam: Bilateral Eye: EOMI Neck: Supple, Non-Tender Respiratory/Chest: No Respiratory Distress, Lungs Clear, Normal Breath Sounds Cardiovascular: Regular Rate, Rhythm, No Murmur Peripheral Pulses: 2+: Radial (L), Radial (R) GI/Abdominal: Normal Bowel Sounds, Soft, Non-Tender Back Exam: Normal Inspection Extremities: Pedal Edema, Other (Trace left lower extremity edema, 1+ right lower extremity edema. Note that the bilateral calves measure right40.5 cm; left40 cm. There is mild erythema of the superior lateral/posterior aspect of the right calf. Homans' sign is negative bilaterally) Psychiatric: Normal Affect, Normal Mood Skin Exam: Warm, Dry, Intact Course - Vital Signs Last Recorded V/S: Last Vital Signs Temp 36.2 C 06/11/21 16:45 Pulse 52 L 06/11/21 16:45 Resp 16 06/11/21 16:45 BP 132/75 06/11/21 16:45 Pulse Ox 95 06/11/21 16:45 Departure - Departure Time of Disposition: 17:46 Disposition: Home, Self-Care 01 Condition: Good Clinical Impression: Right leg pain, Swelling of right lower extremity - Discharge Information *PRESCRIPTION DRUG MONITORING PROGRAM REVIEWED*: Not Applicable *COPY OF PRESCRIPTION DRUG MONITORING REPORT IN PATIENT ARI: Not Applicable Instructions: Venous Thromboembolism Prevention Additional Instructions: Monitor for signs and symptoms of DVT including leg swelling, redness, pain, chest pain, palpitations, shortness of breath, difficulty breathing, fever. Go to the emergency department immediately if you have any of the symptoms. Go to [facility] walk-in clinic tomorrow for evaluation and venous duplex. Sepsis Event Note (ED) - Evaluation Sepsis Screening Result: No Definite Risk - Focused Exam Vital Signs: Vital Signs Temp Pulse Resp BP Pulse Ox 06/11/21 16:45 36.2 C 52 L 16 132/75 95
== END 2021-06-11 17:55 | disposition home or self-care (01) ==
LOC: FB.ED 16:35
DX: M79.604 Pain in right leg (principal); M79.89 Other specified soft tissue disorders; R60.0 Localized edema; I48.91 Unspecified atrial fibrillation; E78.00 Pure hypercholesterolemia, unspecified; K21.9 Gastro-esophageal reflux disease without esophagitis; Z79.01 Long term (current) use of anticoagulants; Z79.899 Other long term (current) drug therapy
CPT/HCPCS: 99283

== ENCOUNTER 2024-04-25 10:17 | Emergency (ER) | payer MEDICARE ==
[2024-04-25 11:12] LABS: HEMATOCRIT 35.9 % (38.3-50.1); HEMOGLOBIN 11.8 g/dL (12.9-17.7); MEAN CORPUSCULAR HEMOGLOBIN 31.6 pg (27.0-33.3); MEAN CORPUSCULAR HGB CONC 32.9 g/dL (28.7-35.3); MEAN PLATELET VOLUME 7.8 fL (6.7-11.0); PLATELET COUNT,PLT 278 x10(3)uL (117-477); RED BLOOD CELL COUNT 3.74 x10(6)uL (3.90-5.90); RED CELL DISTRIBUTION WIDTH 13.8 % (12.4-15.0); WHITE BLOOD CELL COUNT,WBC 7.3 x10-3/uL (3.2-10.1)
[2024-04-25 11:13] LABS: BASOPHILS PERCENT AUTO 0.3 % (0.3-3.8); EOSINOPHILS ABSOLUTE AUTO 0.2 x10-3/uL (0.0-0.6); EOSINOPHILS PERCENT AUTO 2.4 % (0.1-6.8); LYMPHOCYTES ABSOLUTE AUTO 1.1 x10-3/uL (0.5-4.5); LYMPHOCYTES PERCENT AUTO 14.9 % (15.8-45.3); MONOCYTES ABSOLUTE AUTO 0.6 x10-3/uL (0.0-1.2); MONOCYTES PERCENT AUTO 7.7 % (5.5-15.2); NEUTROPHILS ABSOLUTE AUTO 5.4 x10-3/uL (1.7-6.9); NEUTROPHILS PERCENT AUTO 74.7 % (40.3-71.8)
[2024-04-25 11:17] LABS: BLOOD UREA NITROGEN,BUN 17 mg/dL (7-18); BUN/CREATININE RATIO 14.2 (9-20); CALCIUM 8.7 mg/dL (8.6-10.2); CARBON DIOXIDE,CO2 26 mmol/L (21-32); CHLORIDE,CL 106 mmol/L (100-110); CREATININE 1.2 mg/dL (0.70-1.30); ESTIMATED GFR 58 mL/min (>60); GLUCOSE RANDOM 104 mg/dL (80-116); POTASSIUM,K 3.6 mmol/L (3.5-5.3); SODIUM,NA 142 mmol/L (135-145)
[2024-04-25 11:23] LABS: A/G RATIO 0.7; ALANINE AMINOTRANSFERASE,ALT 15 U/L (12-36); ALBUMIN 2.8 g/dL (3.2-4.6); ALKALINE PHOSPHATASE 98 IU/L (56-112); ASPARTATE AMNIOTRANSFERASE,AST 14 IU/L (5-25); BILIRUBIN TOTAL 0.3 mg/dL (0.1-1.3); PROTEIN TOTAL,TP 6.6 g/dL (6.0-8.0)
[2024-04-25 12:07] LABS: BILIRUBIN,URINE SMALL (NEGATIVE); GLUCOSE,URINE NORMAL (NORMAL); KETONES,URINE NEGATIVE (NEGATIVE); LEUKOCYTE ESTERASE,URINE MODERATE (NEGATIVE); NITRITE,URINE NEGATIVE (NEGATIVE); OCCULT BLOOD,URINE LARGE (NEGATIVE); PROTEIN,URINE 30 mg/dL (NEGATIVE); UROBILINOGEN,URINE 1 mg/dL (NEGATIVE)
[2024-04-25 12:14] LABS: APPEARANCE,URINE CLOUDY (CLEAR); BACTERIA,URINE MANY (NS); COLOR,URINE YELLOW (YELLOW); RBC,URINE >100 (0-5); SQUAMOUS EPITHELIAL CELLS,UR FEW (NS,R,O); WBC,URINE 30-40 (0-5)
[2024-04-25] MEDS: Sodium Chloride 0.9% 500 ML IV ONE (13:03)
[2024-04-25] MEDS: HYDROmorphone 2 MG/ML SDV IVPUSH ONE (13:06)
[2024-04-25] MEDS: Sodium Chloride 0.9% 1,000 ML IV SCH (14:08)
[2024-04-25 15:09] VITALS: BP 148/76; PULSE 86
== END 2024-04-25 15:00 ==
LOC: FB.ED 10:17
DX: S72.002A Fracture of unspecified part of neck of left femur, initial encounter for closed fracture (principal); G30.1 Alzheimer's disease with late onset; K21.9 Gastro-esophageal reflux disease without esophagitis; E78.00 Pure hypercholesterolemia, unspecified; Z79.899 Other long term (current) drug therapy; W19.XXXA Unspecified fall, initial encounter
CPT/HCPCS: 36415; 71045; 73502-LT; 80053; 81001; 84484; 85025; 87086; 93005; 93010; 96361; 96374; 99285; 99285-25; J1170; J7030; J7040